=== PATIENT | male | born 1970 | race Caucasian/White ===

== ENCOUNTER 2018-09-09 09:26 | Emergency (ER) | payer SELFPAY ==
[2018-09-09 10:16] LABS: Hematocrit 46.3 % (39.6-49.0); Lymphocytes % 26.4 % (15.3-44.8); MPV 7.9 fL (7.6-11.3); RBC Red Blood Cell Count 4.89 M/uL (4.33-5.43)
[2018-09-09 10:17] LABS: Absolute Lymphocytes (CBC) 2.1 K/uL (0.7-4.9); Absolute Monocytes 0.8 K/uL (0.1-1.3); Basophils % 0.6 % (0-1.3); Eosinophils % 1.4 % (0-4.4); Monocytes % 9.6 % (3.3-12.3)
[2018-09-09 10:19] LABS: BUN Blood Urea Nitrogen 19 mg/dL (7-18); Bicarbonate 28 mmol/L (21-32); Glucose Level 99 mg/dL (74-106); NT PRO-BNP 51 pg/mL (<125); Potassium 4.7 mmol/L (3.5-5.1); Sodium Level 141 mmol/L (136-145); Troponin (Emerg Dept Use Only) < 0.02 ng/mL (0.0-0.045)
--- NOTE | 2018-09-09 10:44 | RAD REPORT ---
EXAM DESCRIPTION: Sabiha Single View09/09/2018 10:14 am CLINICAL HISTORY: Chest pain COMPARISON: 2013 FINDINGS: The lungs appear clear of acute infiltrate. The heart is normal size IMPRESSION: No acute abnormalities displayed
--- NOTE | 2018-09-09 11:29 | ER ---
Nurse's Notes [facility] [place] Name: Calin Valles Age: 47 yrs Sex: Male : 1970 Arrival Date: 09/09/2018 Time: : Bed 17 Private MD: Diagnosis: Chest pain, unspecified Presentation: 09/09 09:35 Presenting complaint: Patient states: left sided chest pain that started yesterday em afternoon, described as pressure, became nauseous, diaphoretic and left arm numbness and tingling, denies SOB, denies pain or symptoms currently. 09:35 Transition of care: patient was not received from another setting of care. Onset of em symptoms was September 08, 2018. Risk Assessment: Do you want to hurt yourself or someone else? Patient reports no desire to harm self or others. Initial Sepsis Screen: Does the patient meet any 2 criteria? No. Patient's initial sepsis screen is negative. Does the patient have a suspected source of infection? No. Patient's initial sepsis screen is negative. Care prior to arrival: None. 09:35 Method Of Arrival: Ambulatory em 09:56 Acuity: MICHELLE 3 iw Triage Assessment: 09:44 General: Appears in no apparent distress. comfortable, Behavior is calm, cooperative, em anxious. Pain: Denies pain. Cardiovascular: Capillary refill < 3 seconds Patient's skin is warm and dry. Rhythm is sinus rhythm. Historical: - Allergies: 09:44 PENICILLINS; em - Home Meds: 09:44 aspirin 81 mg Oral chew 1 tab once daily [Active]; em - PMHx: 09:44 None; em - PSHx: 09:44 None; em - Immunization history:: Adult Immunizations up to date, Flu vaccine is not up to date. - Social history:: Smoking status: Patient uses tobacco products, smokes one pack cigarettes per day. - Ebola Screening: : Patient negative for fever greater than or equal to 101.5 degrees Fahrenheit, and additional compatible Ebola Virus Disease symptoms Patient denies exposure to infectious person Patient denies travel to an Ebola-affected area in the 21 days before illness onset No symptoms or risks identified at this time. - Family history:: pertinent for heart disease. - Hospitalizations: : No recent hospitalization is reported. Screenin:40 Abuse screen: Denies threats or abuse. Nutritional screening: No deficits noted. em Tuberculosis screening: No symptoms or risk factors identified. Fall Risk None identified. Assessment: 09:40 General: Appears in no apparent distress. comfortable, Behavior is cooperative, em anxious, Denies fever. Pain: Complains of pain in anterior aspect of left upper chest Pain does not radiate. Pain currently is 0 out of 10 on a pain scale. Quality of pain is described as pressure, squeezing, Pain began 1 day ago. Neuro: Level of Consciousness is awake, alert, obeys commands, Oriented to person, place, time, situation. Cardiovascular: Reports chest pain, diaphoresis, nausea, vomiting, Denies shortness of breath, Heart tones S1 S2 present Capillary refill < 3 seconds Patient's skin is warm and dry. Rhythm is sinus rhythm. Respiratory: Airway is patent Respiratory effort is even, unlabored, Respiratory pattern is regular, symmetrical, Breath sounds are clear bilaterally. Denies shortness of breath labored breathing. GI: Abdomen is flat, Patient currently denies nausea, vomiting. Derm: Skin is intact, is healthy with good turgor, Skin is pink, warm \T\ dry. Musculoskeletal: Capillary refill < 3 seconds, Range of motion: intact in all extremities. 10:53 Reassessment: Patient appears in no apparent distress at this time. Patient and/or em family updated on plan of care and expected duration. Pain level reassessed. Patient is alert, oriented x 3, equal unlabored respirations, skin warm/dry/pink. Patient denies pain at this time. Vital Signs: 09:44 BP 151 / 105; Pulse 86; Resp 16; Temp 98.3(O); Pulse Ox 100% on R/A; Weight 74.84 kg; em Height 5 ft. 10 in. (177.80 cm); Pain 0/10; 11:00 BP 141 / 91; Pulse 76; Resp 18; Pulse Ox 99% on R/A; Pain 0/10; em 09:44 Body Mass Index 23.67 (74.84 kg, 177.80 cm) em ED Course: 09:27 Patient arrived in ED. as 09:35 Kike Mishra MD is Attending Physician. rn 09:40 Ash Carrera LVN is Primary Nurse. em 09:40 Patient has correct armband on for positive identification. Bed in low position. Call em light in reach. monitoring specialist on. Pulse ox on. NIBP on. 09:40 Patient maintains SpO2 saturation greater than 95% on room air. em 09:44 Arm band placed on. em 09:56 Triage completed. iw 10:12 X-ray completed. Portable x-ray completed in exam room. Patient tolerated procedure la2 well. 10:14 XRAY Chest (1 view) In Process Unspecified. EDMS 11:44 No provider procedures requiring assistance completed. IV discontinued, intact, em bleeding controlled, No redness/swelling at site. Pressure dressing applied. Administered Medications: No medications were administered Outcome: 11:28 Discharge ordered by MD. rn 11:44 Discharged to home ambulatory, with family. em 11:44 Condition: good 11:44 Discharge instructions given to patient, family, Instructed on discharge instructions, follow up and referral plans. medication usage, Demonstrated understanding of instructions, follow-up care, medications, Prescriptions given X 1. 11:45 Patient left the ED. em Signatures: Dispatcher [employer] EDIN Ash Carrera, COLOR MAKER COLOR MAKER em Rachael Zimmerman Irene, RN Kike Dunn MD MD rn Ardoin, Leslie la2
--- NOTE | 2018-09-09 11:29 | EDPHYS ---
Physician Documentation [facility] Name: Calin Valles Age: 47 yrs Sex: Male : 1970 Arrival Date: 09/09/2018 Time: :27 Bed 17 Private MD: ED Physician Kike Mishra HPI: 09/09 10:08 This 47 yrs old Male presents to ER via Ambulatory with complaints of Chest rn Pain, Numbness Of Arm. 10:08 The patient or guardian reports chest pain that is located primarily in the anterior rn aspect of left upper chest. Onset: yesterday. The pain radiates to the left arm. Associated signs and symptoms: Pertinent positives: nausea, Pertinent negatives: abdominal pain, cough, diaphoresis, lightheadedness, palpitations, shortness of breath, syncope, vomiting. The chest pain is described as a heaviness, a pressure. Duration: The patient or guardian reports multiple episodes, that are intermittent. Modifying factors: The symptoms are alleviated by nothing. the symptoms are aggravated by nothing. Severity of pain: At its worst the pain was mild in the emergency department the pain has improved. The patient has not experienced similar symptoms in the past. REports intermittent chest pressure, with radiation down left arm, reports an uncle that of heart attach in mid-50s, + heavy smoker, + nausea, not better or worse with anything specific. No current chest pain/sob/nausea/diaphoresis.. 10:08 Also reports takes energy pills/stackers. . rn Historical: - Allergies: 09:44 PENICILLINS; em - Home Meds: 09:44 aspirin 81 mg Oral chew 1 tab once daily [Active]; em - PMHx: 09:44 None; em - PSHx: 09:44 None; em - Immunization history:: Adult Immunizations up to date, Flu vaccine is not up to date. - Social history:: Smoking status: Patient uses tobacco products, smokes one pack cigarettes per day. - Ebola Screening: : Patient negative for fever greater than or equal to 101.5 degrees Fahrenheit, and additional compatible Ebola Virus Disease symptoms Patient denies exposure to infectious person Patient denies travel to an Ebola-affected area in the 21 days before illness onset No symptoms or risks identified at this time. - Family history:: pertinent for heart disease. - Hospitalizations: : No recent hospitalization is reported. ROS: 10:08 Constitutional: Negative for fever, chills, and weight loss, Eyes: Negative for injury, rn pain, redness, and discharge, Neck: Negative for injury, pain, and swelling, Cardiovascular: Negative for palpitations, and edema, Respiratory: Negative for shortness of breath, cough, wheezing, and pleuritic chest pain, Abdomen/GI: Negative for abdominal pain, vomiting, diarrhea, and constipation, MS/Extremity: Negative for injury and deformity, Skin: Negative for injury, rash, and discoloration, Neuro: Negative for headache, weakness, numbness, tingling, and seizure. Exam: 10:08 Constitutional: This is a well developed, well nourished patient who is awake, alert, rn and in no acute distress. Head/Face: Normocephalic, atraumatic. Eyes: Pupils equal round and reactive to light, extra-ocular motions intact. Lids and lashes normal. Conjunctiva and sclera are non-icteric and not injected. Cornea within normal limits. Periorbital areas with no swelling, redness, or edema. ENT: MMM Neck: Trachea midline, no thyromegaly or masses palpated, and no cervical lymphadenopathy. Supple, full range of motion without nuchal rigidity, or vertebral point tenderness. No Meningismus. Cardiovascular: Regular rate and rhythm, No pulse deficits. Respiratory: Lungs have equal breath sounds bilaterally, clear to auscultation. No increased work of breathing, no retractions or nasal flaring. Abdomen/GI: Soft, non-tender MS/ Extremity: Pulses equal, no cyanosis. Neurovascular intact. Full, normal range of motion. Equal circumference. Neuro: Awake and alert, GCS 15, oriented to person, place, time, and situation. Cranial nerves II-XII grossly intact. Motor strength 5/5 in all extremities. Sensory grossly intact. Cerebellar exam normal. 11:42 ECG was reviewed by the Attending Physician. rn Vital Signs: 09:44 BP 151 / 105; Pulse 86; Resp 16; Temp 98.3(O); Pulse Ox 100% on R/A; Weight 74.84 kg; em Height 5 ft. 10 in. (177.80 cm); Pain 0/10; 11:00 BP 141 / 91; Pulse 76; Resp 18; Pulse Ox 99% on R/A; Pain 0/10; em 09:44 Body Mass Index 23.67 (74.84 kg, 177.80 cm) em MDM: 09:35 Patient medically screened. rn 11:25 Differential diagnosis: acute myocardial infarction, acute pericarditis, anxiety, rn coronary artery disease chest wall pain, costochondritis, esophagitis, gastritis, gastroesophageal reflux disease (GERD), pericarditis, pleurisy, pneumothorax, stable angina. HEART Score:. Data reviewed: vital signs, nurses notes, lab test result(s), EKG, radiologic studies, plain films, and as a result, I will discharge patient. Counseling: I had a detailed discussion with the patient and/or guardian regarding: the historical points, exam findings, and any diagnostic results supporting the discharge/admit diagnosis, lab results, radiology results, the need for outpatient follow up, to return to the emergency department if symptoms worsen or persist or if there are any questions or concerns that arise at home. Counseling: I had a detailed discussion with the patient and/or guardian regarding: smoking cessation. Response to treatment: the patient's condition has returned to base line, the patient is now symptom free, and as a result, I will discharge patient. Special discussion: Based on the patient's history, exam, and Dx evaluation, there is no indication for emergent intervention or inpatient Tx. It is understood by the patient/guardian that if the Sx's persist or worsen they need to return immediately for re-evaluation. I discussed with the patient/guardian in detail that at this point there is no indication for admission to the hospital. It is understood, however, that if the symptoms persist or worsen the patient needs to return immediately for re-evaluation. ED course: Will restart patient on metoprolol, daily aspirin, and recommended close cardiology f/u, patient ahs seen dr ruiz before, and actually missed his scheduled stress test, told him he needs stress test, to take it easy, stop using stimulants, and quit smoking, return precautions given and understood. . 09/09 09:44 Order name: Basic Metabolic Panel; Complete Time: 10: rn 09/09 09:44 Order name: CBC with Diff; Complete Time: 10: rn 09/09 09:44 Order name: NT PRO-BNP; Complete Time: : rn 09/09 08:44 Order name: Troponin (emerg Dept Use Only); Complete Time: 10:27 rn 09/09 09:44 Order name: XRAY Chest (1 view); Complete Time: 10:46 rn 09/09 09:44 Order name: EKG; Complete Time: 09:45 rn 09/09 09:44 Order name: Cardiac monitoring; Complete Time: 09:51 rn 09/09 09:44 Order name: EKG - Nurse/Tech; Complete Time: 09:51 rn 09/09 09:44 Order name: IV Saline Lock; Complete Time: 09:51 rn 09/09 09:44 Order name: Labs collected and sent; Complete Time: 09:51 rn 09/09 09:44 Order name: O2 Per Protocol; Complete Time: :51 rn 09/09 09:44 Order name: O2 Sat Monitoring; Complete Time: :51 rn EC:42 Rate is 80 beats/min. Rhythm is regular. QRS [place] is Normal. [place] interval is shortened rn at 108 msec. QRS interval is normal. QT interval is normal. No Q waves. T waves are Normal. No ST changes noted. Clinical impression: LVH and No evidence of ischemia. Interpreted by me. Administered Medications: No medications were administered Disposition: 09/09/18 11:28 Discharged to Home. Impression: Chest pain, unspecified. - Condition is Stable. - Discharge Instructions: Nonspecific Chest Pain, Steps to Quit Smoking. - Prescriptions for Metoprolol Tartrate 25 mg Oral Tablet - take 1 tablet by ORAL route 2 times per day with a meal; 60 tablet. - Medication Reconciliation Form, Thank You Letter, Antibiotic Education, Prescription Opioid Use form. - Follow up: Private Physician; When: As needed; Reason: Recheck today's complaints, Re-evaluation by your physician. - Problem is new. - Symptoms have improved. Signatures: Dispatcher [employer] EDAsh Nicolas, MANAGER OF INFORMATION MANAGER OF INFORMATION em Kike Mishra MD MD rn orthopedic: (The following items were deleted from the chart) 11:45 11:28 09/09/2018 11:28 Discharged to Home. Impression: Chest pain, unspecified. em Condition is Stable. Forms are Medication Reconciliation Form, Thank You Letter, Antibiotic Education, Prescription Opioid Use. Follow up: Private Physician; When: As needed; Reason: Recheck today's complaints, Re-evaluation by your physician. Problem is new. Symptoms have improved. rn
--- NOTE | 2018-09-10 07:49 | EKG ---
Test Date: 2018-09-09 Test Time: 09:33:29 Cotton Weigher: MEASUREMENT RESULTS: Intervals: Rate: 80 MD: 108 QRSD: 102 QT: 364 QTc: 419 Dwight: P: 60 MD: 108 QRS: 77 T: 75 INTERPRETIVE STATEMENTS: Sinus rhythm with short MD Minimal voltage criteria for LVH, may be normal variant Borderline ECG Compared to ECG 05/10/2014 06:43:34 Short MD interval now present Electronically Signed On 09-10-18 07:47:34 CDT by Mikel Carvajal
== END 2018-09-09 11:45 | disposition home or self-care (01) ==
LOC: ER 09:26
DX: R07.9 Chest pain, unspecified (principal); R11.0 Nausea; Z79.82 Long term (current) use of aspirin; Z88.0 Allergy status to penicillin; F17.210 Nicotine dependence, cigarettes, uncomplicated
CPT/HCPCS: 36415; 71045; 80048; 83880; 84484; 85025; 93005; 99284

== ENCOUNTER 2019-03-03 19:08 | Emergency (ER) | payer SELFPAY ==
[2019-03-03 19:30] LABS: Absolute Lymphocytes (CBC) 2.5 K/uL (0.7-4.9); Basophils % 0.8 % (0-1.3); Hematocrit 44.7 % (39.6-49.0); Lymphocytes % 35.4 % (15.3-44.8); MPV 8.2 fL (7.6-11.3); RBC Red Blood Cell Count 4.93 M/uL (4.33-5.43)
[2019-03-03 19:32] LABS: Protime INR 0.93
[2019-03-03] MEDS ORDERED: NA CHLORIDE 0.9% 1,000 ML ONE (19:41)
[2019-03-03 20:12] LABS: Barbiturates NEGATIVE (NEGATIVE); Benzodiazepines NEGATIVE (NEGATIVE); Cocaine NEGATIVE (NEGATIVE); METHAMPHETAM POSITIVE (NEGATIVE); Methadone NEGATIVE (NEGATIVE); Opiates NEGATIVE (NEGATIVE); Phencyclidine NEGATIVE (NEGATIVE); THC Cannibis NEGATIVE (NEGATIVE)
[2019-03-03 20:14] LABS: Urine Blood NEGATIVE (NEG); Urine Glucose NEGATIVE (NEG); Urine Protein NEGATIVE (NEG); Urine Specific Gravity 1.025 (1.005-1.030)
[2019-03-03 20:17] LABS: ALT/SGPT 59 U/L (12-78); AST/SGOT 35 U/L (15-37); Alkaline Phosphatase 59 U/L (45-117); BUN Blood Urea Nitrogen 14 mg/dL (7-18); Bicarbonate 27 mmol/L (21-32); Bilirubin Direct < 0.1 mg/dL (0-0.2); Bilirubin Total 0.2 mg/dL (0.2-1.0); Glucose Level 98 mg/dL (74-106); Magnesium 2.2 mg/dL (1.8-2.4); NT PRO-BNP 35 pg/mL (<125); Potassium 4.3 mmol/L (3.5-5.1); Protein, Total 7.5 g/dL (6.4-8.2); Sodium Level 140 mmol/L (136-145); Troponin (Emerg Dept Use Only) < 0.02 ng/mL (0.0-0.045)
--- NOTE | 2019-03-03 20:35 | ER ---
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 Transition of care: patient was not received from another setting of care. Onset of symptoms was March 03, 2019. Risk Assessment: Do you want to hurt yourself or someone else? Patient reports no desire to harm self or others. Initial Sepsis Screen: Does the patient meet any 2 criteria? No. Patient's initial sepsis screen is negative. Does the patient have a suspected source of infection? No. Patient's initial sepsis screen is negative. Care prior to arrival: None. 19:16 Method Of Arrival: Ambulatory lp1 19:16 Acuity: MICHELLE 3 lp1 Historical: - Allergies: 19:18 PENICILLINS; lp1 - Home Meds: 19:18 None [Active]; lp1 - PMHx: 19:18 Hypertension; lp1 - PSHx: 19:18 hand surgery; lp1 - Immunization history:: Adult Immunizations up to date. - Social history:: Smoking status: Patient uses tobacco products, smokes one-half pack cigarettes per day, Patient/guardian denies using alcohol, street drugs. - Ebola Screening: : No symptoms or risks identified at this time. Screenin:18 Abuse screen: Denies threats or abuse. Denies injuries from another. Nutritional lp1 screening: No deficits noted. Tuberculosis screening: No symptoms or risk factors identified. Fall Risk None identified. Assessment: 19:21 General: Appears in no apparent distress. comfortable, Behavior is calm, cooperative. mg2 Pain: Complains of pain in chest Pain does not radiate. Pain level that patient reports is acceptable is 2 out of 10 on a pain scale. Quality of pain is described as aching, Pain began gradually, 5-6 days ago Is intermittent. Neuro: Level of Consciousness is awake, alert, obeys commands, Oriented to person, place, time, situation. Cardiovascular: Reports chest pain, shortness of breath, Capillary refill < 3 seconds Patient's skin is warm and dry. Respiratory: Airway is patent Respiratory effort is even, unlabored, Respiratory pattern is regular, symmetrical. GI: No signs and/or symptoms were reported involving the gastrointestinal system. : No signs and/or symptoms were reported regarding the genitourinary system. EENT: No signs and/or symptoms were reported regarding the EENT system. Derm: Skin is intact, is healthy with good turgor, Skin is pink, warm \\T\\ dry. normal. Musculoskeletal: Circulation, motion, and sensation intact. Capillary refill < 3 seconds. 21:00 Reassessment: Patient appears in no apparent distress at this time. Patient states mg2 feeling better. Vital Signs: 19:17 BP 156 / 93; Pulse 118; Resp 16; Temp 97.6(O); Pulse Ox 99% on R/A; Weight 74.84 kg; lp1 Height 5 ft. 10 in. (177.80 cm); Pain 4/10; 20:35 BP 147 / 93; Pulse 102; Resp 18; Pulse Ox 100% on R/A; mg2 21:13 BP 135 / 78; Pulse 100; Resp 18; Temp 98.5; Pulse Ox 100% on R/A; mg2 19:17 Body Mass Index 23.67 (74.84 kg, 177.80 cm) lp1 ED Course: 19:15 Patient arrived in ED. lp1 19:17 Triage completed. lp1 19:17 Arm band placed on. lp1 19:18 Jose Coleman, VIOLA is Primary Nurse. mg2 19:18 Patient maintains SpO2 saturation greater than 95% on room air. lp1 19:20 No provider procedures requiring assistance completed. Inserted saline lock: 20 gauge mg2 in right antecubital area, using aseptic technique. Blood collected. 19:22 Oscar Hunter NP is PHCP. pm1 19:22 Carlos Caba MD is Attending Physician. pm1 19:23 Patient has correct armband on for positive identification. call center consultant on. Pulse mg2 ox on. NIBP on. Door closed. 20:24 XRAY Chest (1 view) In Process Unspecified. EDMS 21:13 IV discontinued, intact, bleeding controlled, No redness/swelling at site. Pressure mg2 dressing applied. Administered Medications: 19:43 Drug: NS 0.9% 1000 ml Route: IV; Rate: 1000 ml; Site: right antecubital; mg2 21:12 Follow up: Response: No adverse reaction; IV Status: Completed infusion; IV Intake: mg2 1000ml 21:11 Drug: Flexeril 10 mg Route: PO; mg2 21:12 Follow up: Response: No adverse reaction; Medication administered at discharge. mg2 21:11 Drug: TORadol - Ketorolac 15 mg Route: IVP; Site: right antecubital; mg2 21:12 Follow up: Response: No adverse reaction; Medication administered at discharge. mg2 Intake: 21:12 IV: 1000ml; Total: 1000ml. mg2 Outcome: 20:35 Discharge ordered by MD. pm1 21:15 Discharged to home ambulatory, with family. mg2 21:15 Condition: stable 21:15 Discharge instructions given to patient, family, Instructed on discharge instructions, follow up and referral plans. medication usage, Demonstrated understanding of instructions, follow-up care, medications, Prescriptions given X 1. 21:16 Patient left the ED. mg2 Signatures: Dispatcher [employer] EDMS Laura Norton RN RN lp1 Oscar Hunter NP RAIL MAINTENANCE WORKER pm1 Jose Coleman RN RN mg2
--- NOTE | 2019-03-03 20:35 | EDPHYS ---
Physician Documentation [facility] Name: Calin Valles Age: 48 yrs Sex: Male : 1970 Arrival Date: 03/03/2019 Time: 19:15 Bed 20 Private MD: ED Physician Carlos Caba HPI: 03/03 19:30 This 48 yrs old Male presents to ER via Ambulatory with complaints of Chest pm1 Pain. 19:30 The patient or guardian reports chest pain that is located primarily in the medial pm1 anterior aspect of left upper chest. Onset: 7 day(s) ago. The pain does not radiate. Associated signs and symptoms: Pertinent positives: headache, Pertinent negatives: abdominal pain, cough, nausea, shortness of breath, vomiting. The chest pain is described as sharp. Duration: The patient or guardian reports multiple episodes. Modifying factors: the symptoms are aggravated by deep breath, palpation of area, movement of left arm. The patient has not experienced similar symptoms in the past. The patient has not recently seen a physician. Historical: - Allergies: 19:18 PENICILLINS; lp1 - Home Meds: 19:18 None [Active]; lp1 - PMHx: 19:18 Hypertension; lp1 - PSHx: 19:18 hand surgery; lp1 - Immunization history:: Adult Immunizations up to date. - Social history:: Smoking status: Patient uses tobacco products, smokes one-half pack cigarettes per day, Patient/guardian denies using alcohol, street drugs. - Ebola Screening: : No symptoms or risks identified at this time. ROS: 19:30 Constitutional: Negative for fever, chills, and weight loss, Eyes: Negative for injury, pm1 pain, redness, and discharge, ENT: Negative for injury, pain, and discharge, Neck: Negative for injury, pain, and swelling. 19:30 Respiratory: Negative for shortness of breath, cough, wheezing, and pleuritic chest pain, Abdomen/GI: Negative for abdominal pain, nausea, vomiting, diarrhea, and constipation, Back: Negative for injury and pain, : Negative for injury, bleeding, discharge, and swelling, MS/Extremity: Negative for injury and deformity, Skin: Negative for injury, rash, and discoloration, Neuro: Negative for headache, weakness, numbness, tingling, and seizure. 19:30 Cardiovascular: Positive for chest pain, palpitations, Negative for edema. Exam: 19:30 Constitutional: This is a well developed, well nourished patient who is awake, alert, pm1 and in no acute distress. Head/Face: Normocephalic, atraumatic. Neck: Trachea midline, no thyromegaly or masses palpated, and no cervical lymphadenopathy. Supple, full range of motion without nuchal rigidity, or vertebral point tenderness. No Meningismus. 19:30 Respiratory: Lungs have equal breath sounds bilaterally, clear to auscultation and percussion. No rales, rhonchi or wheezes noted. No increased work of breathing, no retractions or nasal flaring. Abdomen/GI: Soft, non-tender, with normal bowel sounds. No distension or tympany. No guarding or rebound. No evidence of tenderness throughout. Back: No spinal tenderness. No costovertebral tenderness. Full range of motion. Skin: Warm, dry with normal turgor. Normal color with no rashes, no lesions, and no evidence of cellulitis. MS/ Extremity: Pulses equal, no cyanosis. Neurovascular intact. Full, normal range of motion. 19:30 Chest/axilla: Inspection: normal, Palpation: crepitus, is not appreciated, tenderness, that is mild, of the medial anterior aspect of left upper chest, that totally reproduces the patient's complaints, Pain reproduced with extending left arm and moving left arm above head, and deep breathing. 19:30 Cardiovascular: Rate: tachycardic, Rhythm: regular, Pulses: no pulse deficits are appreciated, Heart sounds: normal, Edema: is not appreciated. 19:30 Neuro: Orientation: is normal, Motor: is normal, moves all fours, Gait: is steady, at a normal pace, without difficulty. 19:30 Psych: Behavior/mood is pleasant, cooperative, Affect is animated. Vital Signs: 19:17 BP 156 / 93; Pulse 118; Resp 16; Temp 97.6(O); Pulse Ox 99% on R/A; Weight 74.84 kg; lp1 Height 5 ft. 10 in. (177.80 cm); Pain 4/10; 20:35 BP 147 / 93; Pulse 102; Resp 18; Pulse Ox 100% on R/A; mg2 21:13 BP 135 / 78; Pulse 100; Resp 18; Temp 98.5; Pulse Ox 100% on R/A; mg2 19:17 Body Mass Index 23.67 (74.84 kg, 177.80 cm) lp1 MDM: 19:23 Patient medically screened. pm1 20:33 Data reviewed: vital signs. Data interpreted: Pulse oximetry: on room air is 99 %. pm1 Interpretation: normal. Counseling: I had a detailed discussion with the patient and/or guardian regarding: the historical points, exam findings, and any diagnostic results supporting the discharge/admit diagnosis, lab results, radiology results, the need for outpatient follow up, to return to the emergency department if symptoms worsen or persist or if there are any questions or concerns that arise at home. 03/03 19:19 Order name: Basic Metabolic Panel mg2 03/03 19:19 Order name: CBC with Diff; Complete Time: 19:46 mg2 03/03 19:19 Order name: LFT's; Complete Time: 20:21 mg2 03/03 19:19 Order name: Magnesium; Complete Time: 20:21 mg2 03/03 19:19 Order name: NT PRO-BNP; Complete Time: 20:21 mg2 03/03 19:19 Order name: PT-INR; Complete Time: 19:46 mg2 03/03 19:19 Order name: Troponin (emerg Dept Use Only); Complete Time: 20:21 mg2 03/03 19:19 Order name: XRAY Chest (1 view); Complete Time: 20:57 mg2 03/03 19:20 Order name: Basic Metabolic Panel; Complete Time: 20:21 EDMS 03/03 19:29 Order name: UDS; Complete Time: 20:21 pm1 03/03 19:58 Order name: Urine Dipstick--Ancillary (enter results); Complete Time: 20:21 ar5 03/03 19:19 Order name: EKG; Complete Time: 19:20 mg2 03/03 19:19 Order name: Cardiac monitoring; Complete Time: 19:19 mg2 03/03 19:19 Order name: EKG - Nurse/Tech; Complete Time: 19:19 mg2 03/03 19:19 Order name: IV Saline Lock; Complete Time: 19:19 mg2 03/03 19:19 Order name: Labs collected and sent; Complete Time: 19: mg2 03/03 19:19 Order name: O2 Per Protocol; Complete Time: 19:19 mg2 03/03 19:19 Order name: O2 Sat Monitoring; Complete Time: : mg2 EC:42 Rate is 108 beats/min. Rhythm is regular, Sinus tachycardia with No ectopy. No Q waves. pm1 T waves are Normal. No ST changes noted. Clinical impression: Sinus tachycardia. Administered Medications: 19:43 Drug: NS 0.9% 1000 ml Route: IV; Rate: 1000 ml; Site: right antecubital; mg2 21:12 Follow up: Response: No adverse reaction; IV Status: Completed infusion; IV Intake: mg2 1000ml 21:11 Drug: Flexeril 10 mg Route: PO; mg2 21:12 Follow up: Response: No adverse reaction; Medication administered at discharge. mg2 21:11 Drug: TORadol - Ketorolac 15 mg Route: IVP; Site: right antecubital; mg2 21:12 Follow up: Response: No adverse reaction; Medication administered at discharge. mg2 Disposition: 03/03/19 20:35 Discharged to Home. Impression: Chest pain, unspecified, Other stimulant abuse - methamphetamine. - Condition is Stable. - Discharge Instructions: Finding Treatment for Addiction, Nonspecific Chest Pain, Stimulant Use Disorder-Methamphetamines. - Prescriptions for Cyclobenzaprine 10 mg Oral Tablet - take 1 tablet by ORAL route every 8 hours As needed; 30 tablet. - Medication Reconciliation Form, Thank You Letter, Antibiotic Education, Prescription Opioid Use form. - Follow up: Emergency Department; When: As needed; Reason: Worsening of condition. Follow up: Private Physician; When: 2 - 3 days; Reason: Recheck today's complaints, Continuance of care, Re-evaluation by your physician. - Problem is new. - Symptoms have improved. Addendum: 03/05/2019 08:42 Co-signature as Attending Physician, Carlos Caba MD I agree with the assessment and c soliman plan of care. Signatures: Dispatcher [employer] Carlos Monique MD MD cha Pena, Laura, RN RN lp1 Oscar Hunter EDUCATIONAL PSYCHOLOGY TEACHER EDUCATIONAL PSYCHOLOGY TEACHER pm1 Jose Coleman RN RN mg2 Corrections: (The following items were deleted from the chart) 03/03 21:16 20:35 03/03/2019 20:35 Discharged to Home. Impression: Chest pain, unspecified; Other mg2 stimulant abuse - methamphetamine. Condition is Stable. Forms are Medication Reconciliation Form, Thank You Letter, Antibiotic Education, Prescription Opioid Use. Follow up: Emergency Department; When: As needed; Reason: Worsening of condition. Follow up: Private Physician; When: 2 - 3 days; Reason: Recheck today's complaints, Continuance of care, Re-evaluation by your physician. Problem is new. Symptoms have improved. pm1
--- NOTE | 2019-03-03 20:51 | RAD REPORT ---
EXAM DESCRIPTION: RAD - Chest Single View - 03/03/2019 8:24 pm CLINICAL HISTORY: Chest pain, shortness of breath COMPARISON: August 2018 TECHNIQUE: AP portable chest image was obtained 1948 hours . FINDINGS: Lungs are clear. Heart and vasculature are normal. No measurable pleural effusion and no p neumothorax. No acute bony abnormality seen. No acute aortic findings suspected. IMPRESSION: No acute cardiopulmonary process. No significant change from comparison.
[2019-03-03] MEDS ORDERED: KETOROLAC 30 MG/ML INJ ONE (21:05)
[2019-03-03] MEDS ORDERED: CYCLOBENZAPRINE 10 MG TAB ONE (21:05)
[2019-03-03 21:22] VITALS: O2SAT 100
[2019-03-03 21:23] VITALS: BP 135/78; TEMP 98.5
--- NOTE | 2019-03-04 06:10 | EKG ---
Test Date: 2019-03-03 Test Time: 19:17:31 Hiv Nurse: ISRA[place] MEASUREMENT RESULTS: Intervals: Rate: 108 SC: 126 QRSD: 92 QT: 336 QTc: 450 Mcgrady: P: 80 SC: 126 QRS: 81 T: 74 INTERPRETIVE STATEMENTS: Sinus tachycardia Otherwise normal ECG Compared to ECG 09/09/2018 09:33:29 Sinus rhythm no longer present Short SC interval no longer present Left ventricular hypertrophy no longer present Electronically Signed On 03-04-19 06:09:13 CDT by Shravan Mcneal
== END 2019-03-03 21:16 | disposition home or self-care (01) ==
LOC: ER 19:08
DX: F15.10 Other stimulant abuse, uncomplicated (principal); I10 Essential (primary) hypertension; F17.210 Nicotine dependence, cigarettes, uncomplicated; Z88.0 Allergy status to penicillin
CPT/HCPCS: 36415; 71045; 80048; 80076; 80307; 81003; 83735; 83880; 84484; 85025; 85610; 93005; 96361; 96374; 99285; J7030

== ENCOUNTER 2020-03-28 13:28 | Emergency (ER) | payer SELFPAY ==
--- NOTE | 2020-03-28 13:56 | RAD REPORT ---
EXAM DESCRIPTION: CT - Ct Stroke Brain Wo Cont - 03/28/2020 1:44 pm CLINICAL HISTORY: NUMBNESS COMPARISON: No comparisons TECHNIQUE: Axial 5 millimeter thick images of the head were obtained without IV contrast. All CT scans are performed using dose optimization technique as appropriate and may include automated exposure control or mA/KV adjustment according to patient size. FINDINGS: No intracranial hemorrhage, mass, or cerebral edema. No acute infarction identifiable. No extra-axial fluid collections. Smith matter-white matter differentiation is preserved. A 6 millimeter round metal or high density foreign body is seen in the scalp soft tissues posterior t o the right occipital bone. Visualized portions of the mastoid air cells, paranasal sinuses, and orbits are unremarkable. Findings telephoned to doctor Caba 1352 hours. IMPRESSION: No CT evidence of acute intracranial process.
[2020-03-28 13:58] LABS: Absolute Lymphocytes (CBC) 1.6 K/uL (0.7-4.9); Basophils % 0.6 % (0-1.3); Hematocrit 47.9 % (39.6-49.0); Lymphocytes % 27.1 % (15.3-44.8); MPV 7.7 fL (7.6-11.3); RBC Red Blood Cell Count 5.18 M/uL (4.33-5.43)
[2020-03-28 13:59] LABS: Protime INR 0.91
[2020-03-28] MEDS ORDERED: MORPHINE 2 MG/ML SYR ONE (14:03)
[2020-03-28] MEDS ORDERED: ONDANSETRON 4 MG/2 ML VIAL ONE (14:03)
[2020-03-28] MEDS ORDERED: MECLIZINE HCL 12.5 MG TAB ONE (14:04)
[2020-03-28] MEDS ORDERED: NA CHLORIDE 0.9% 1,000 ML ONE (14:04)
--- NOTE | 2020-03-28 14:10 | RAD REPORT ---
EXAM DESCRIPTION: RAD - Chest Single View - 03/28/2020 1:59 pm CLINICAL HISTORY: dizziness;Chest pain, Stroke protocol chest film COMPARISON: February 2019 TECHNIQUE: AP portable chest image was obtained 03/28/2020 1:59 pm . FINDINGS: Lungs are clear. Heart and vasculature are normal. No measurable pleural effusion and no p neumothorax. No acute bony abnormality seen. No acute aortic findings suspected. IMPRESSION: No acute cardiopulmonary process. No significant change from comparison study.
[2020-03-28 14:12] LABS: ALT/SGPT 29 U/L (12-78); AST/SGOT 19 U/L (15-37); Albumin 4.2 g/dL (3.4-5.0); Alkaline Phosphatase 52 U/L (45-117); BUN Blood Urea Nitrogen 12 mg/dL (7-18); Bicarbonate 30 mmol/L (21-32); Bilirubin Direct < 0.1 mg/dL (0-0.2); Bilirubin Total 0.4 mg/dL (0.2-1.0); Glucose Level 97 mg/dL (74-106); Magnesium 2.5 mg/dL (1.8-2.4); NT PRO-BNP 43 pg/mL (<125); Potassium 4.5 mmol/L (3.5-5.1); Protein, Total 7.8 g/dL (6.4-8.2); Sodium Level 142 mmol/L (136-145); Troponin (Emerg Dept Use Only) < 0.02 ng/mL (0.0-0.045)
[2020-03-28] MEDS ORDERED: ASPIRIN 81 MG CHEWABLE TABLET ONE (14:38)
[2020-03-28 16:06] LABS: Barbiturates NEGATIVE (NEGATIVE); Benzodiazepines NEGATIVE (NEGATIVE); Cocaine NEGATIVE (NEGATIVE); METHAMPHETAM POSITIVE (NEGATIVE); Methadone NEGATIVE (NEGATIVE); Opiates NEGATIVE (NEGATIVE); Phencyclidine NEGATIVE (NEGATIVE); THC Cannibis NEGATIVE (NEGATIVE)
--- NOTE | 2020-03-28 18:36 | EDPHYS ---
Physician Documentation [facility] Name: Calin Valles Age: 49 yrs Sex: Male : 1970 Arrival Date: 03/28/2020 Time: 13:28 Bed 5 Private MD: MARA Physician Carlos Caba HPI: 03/28 13:49 This 49 yrs old Male presents to ER via Ambulatory with complaints of S/S of cp Possible Stroke. 13:49 The patient's problem is reported as paresthesias, in right upper extremity, in right cp lower extremity, dysphasia, difficulty speaking, visual difficulty, blurred vision, dizziness. Onset: The symptoms/episode began/occurred 45 minute(s) ago. Duration: This was a single incident. Associated signs and symptoms: Pertinent positives: chest pain, left arm pain. Patient's baseline: Neuro: alert and fully oriented, Motor: no deficits, Ambulation: walks without assistance, Speech: normal. 13:55 Patient reports smoking methamphetamine yesterday. Had episode of dizziness, tingling cp all over yesterday while at [facility]. Historical: - Allergies: 13:46 PENICILLINS; jd3 - PMHx: 13:46 Hypertension; jd3 - PSHx: 13:46 hand surgery; jd3 - Immunization history:: Adult Immunizations unknown. - Social history:: Smoking status: Patient reports the use of cigarette tobacco products, smokes one-half pack cigarettes per day, Patient uses street drugs, Methamphetamine (Meth). ROS: 13:56 Constitutional: Negative for body aches, chills, fever, poor PO intake. cp 13:56 Eyes: Positive for blurry vision, Negative for vision loss. 13:56 ENT: Negative for ear pain, sore throat, difficulty swallowing, difficulty handling secretions. 13:56 Cardiovascular: Positive for chest pain, Negative for edema, palpitations. 13:56 Respiratory: Negative for cough, shortness of breath, wheezing. 13:56 Abdomen/GI: Negative for abdominal pain, nausea, vomiting, and diarrhea. 13:56 Neuro: Positive for dizziness, tingling, of the right hand and left hand, Negative for altered mental status, headache, speech changes, weakness. 13:56 All other systems are negative. Exam: 13:57 Radiologist reports: no acute findings cp 13:57 Head/Face: Normocephalic, atraumatic. 13:57 Constitutional: The patient appears in no acute distress, alert, awake, non-diaphoretic, non-toxic, well developed, well nourished, anxious. 13:57 Eyes: Periorbital structures: appear normal, Pupils: equal, round, and reactive to light and accomodation, Extraocular movements: intact throughout, Conjunctiva: normal, no exudate, no injection, Lids and lashes: appear normal, bilaterally. 13:57 ENT: External ear(s): are unremarkable, Nose: is normal, Mouth: Lips: moist, Oral mucosa: moist, Posterior pharynx: Airway: no evidence of obstruction, patent. 13:57 Neck: ROM/movement: is normal, is supple, without pain, no range of motions limitations, no nuchal rigidity. 13:57 Chest/axilla: Inspection: normal, Palpation: is normal, no crepitus, no tenderness. 13:57 Cardiovascular: Rate: normal, Rhythm: regular, Heart sounds: murmur, not appreciated, Edema: is not appreciated. 13:57 Respiratory: the patient does not display signs of respiratory distress, Respirations: normal, no use of accessory muscles, no retractions, labored breathing, is not present, Breath sounds: are clear throughout, no decreased breath sounds, no stridor, no wheezing. 13:57 Abdomen/GI: Inspection: abdomen appears normal, Palpation: abdomen is soft and non-tender, in all quadrants. 13:57 Back: pain, is absent, ROM is normal. 13:57 Skin: no rash present. 13:57 Neuro: Orientation: to person, place \T\ time. Mentation: is normal, Cerebellar function: Romberg testing is negative, normal finger to nose testing, heel to parrish testing is normal, Motor: moves all fours, strength is normal, Sensation: tingling, that is mild, of the right hand and left hand. 13:57 ECG was reviewed by the Attending Physician. cp Vital Signs: 13:46 BP 168 / 119; Pulse 98; Resp 18 S; Temp 97.2(TE); Pulse Ox 100% on R/A; Weight 74.84 kg jd3 (R); Height 5 ft. 10 in. (177.80 cm) (R); Pain 3/10; 14:21 BP 161 / 103; Pulse 75; Resp 20; Pulse Ox 99% on R/A; em 15:30 BP 150 / 96; Pulse 98; Resp 18; Pulse Ox 96% on R/A; em 16:30 BP 150 / 97; Pulse 103; Resp 18; Pulse Ox 100% on R/A; Pain 0/10; em 17:47 BP 150 / 105; Pulse 87; Resp 18; Pulse Ox 99% on R/A; em 13:46 Body Mass Index 23.67 (74.84 kg, 177.80 cm) jd3 NIH Stroke Scale Scores: 13:57 NIHSS Score: 0 cp MDM: 13:44 Patient medically screened. cp 14:00 ED course: Will not administer tpa due to symptoms of tingling being bilateral, no cp observed speech changes, no focal deficits on exam. 14:00 Differential diagnosis: CVA, TIA, drug effects, acute AK. cp 18:11 Data reviewed: vital signs, nurses notes, lab test result(s), EKG, radiologic studies, cp CT scan, plain films. Test interpretation: by ED physician or midlevel provider: ECG. Counseling: I had a detailed discussion with the patient and/or guardian regarding: the historical points, exam findings, and any diagnostic results supporting the discharge/admit diagnosis, lab results, radiology results, to return to the emergency department if symptoms worsen or persist or if there are any questions or concerns that arise at home. Response to treatment: the patient's symptoms have markedly improved after treatment. ED course: VSS. CT head negative for acute findings, initial and repeat troponin negative. Symptoms improved. Will discharge to home for continued monitoring. 03/28 13:46 Order name: Basic Metabolic Panel; Complete Time: 14:20 03/28 14:20 Interpretation: Normal except: CL 108; GFR 75. 03/28 13:46 Order name: CBC with Diff; Complete Time: 14:20 03/28 13:46 Order name: LFT's; Complete Time: 14:20 03/28 14:20 Interpretation: Normal except: GLOB 3.6. 03/28 13:46 Order name: Magnesium; Complete Time: 14:20 03/28 15:04 Interpretation: Abnormal: MG 2.5. 03/28 13:46 Order name: NT PRO-BNP; Complete Time: 14:20 03/28 13:46 Order name: PT-INR; Complete Time: 14:20 03/28 13:42 Order name: Ct Stroke Brain Wo Cont; Complete Time: 14:20 EDMS 03/28 13:46 Order name: Troponin (emerg Dept Use Only); Complete Time: 14:20 03/28 14:20 Interpretation: Reviewed. 03/28 13:46 Order name: XRAY Chest (1 view); Complete Time: 14:20 03/28 13:46 Order name: UDS; Complete Time: 16:22 03/28 16:22 Interpretation: Normal except: METHAMPHETAMINE POSITIVE. 03/28 13:59 Order name: Glucose, Ancillary Testing; Complete Time: 14:20 EDMS 03/28 15:54 Order name: Urine Dipstick--Ancillary (enter results) 03/28 16:58 Order name: Troponin I 03/28 13:46 Order name: EKG; Complete Time: 13:47 03/28 13:46 Order name: Cardiac monitoring; Complete Time: 13:50 03/28 13:46 Order name: EKG - Nurse/Tech; Complete Time: 13:50 03/28 13:46 Order name: IV Saline Lock; Complete Time: 13:51 03/28 13:46 Order name: Labs collected and sent; Complete Time: 13:51 03/28 13:46 Order name: O2 Per Protocol; Complete Time: 14:03 03/28 13:46 Order name: O2 Sat Monitoring; Complete Time: 14:03 EC:57 Rate is 82 beats/min. Rhythm is regular. NM interval is normal. QRS interval is normal. cp QT interval is normal. T waves are Inverted in leads aVL, aVR, V2. Interpreted by me. Reviewed by me. Administered Medications: 04:00 Drug: Zofran (Ondansetron) 4 mg Route: IVP; Site: right antecubital; em 16:34 Follow up: Response: No adverse reaction em 13:51 CANCELLED (Physician Discretion): morphine 2 mg IVP once; (PAIN>8) RASS on ADMN: cp Combtv4, Very Agttd3, Agttd2, Rstlss1, AlertClm0, Drwsy-1, LtSdtn-2, ModSdtn-3, DpSdtn-4, UnArsble-5 x2 14:00 Drug: NS 0.9% 1000 ml Route: IV; Rate: 1 bolus; Site: right antecubital; em 15:00 Follow up: IV Status: Completed infusion; IV Intake: 1000ml em 14:01 Drug: Meclizine 25 mg Route: PO; em 16:34 Follow up: Response: No adverse reaction; Marked relief of symptoms em 14:02 Drug: morphine 2 mg Route: IVP; Site: right antecubital; em 14:46 Follow up: Response: No adverse reaction; Marked relief of symptoms; Pain is decreased; em RASS: Alert and Calm (0) 14:16 Drug: Aspirin Chewable Tablet 324 mg Route: PO; em 17:48 Follow up: Response: No adverse reaction em Disposition: 19:00 Chart complete. 03/29 08:16 Co-signature as Attending Physician, Carlos Caba MD I agree with the assessment and amisha plan of care. Disposition: 03/28/20 18:35 Discharged to Home. Impression: Dizziness and giddiness, Chest pain, unspecified, Paresthesia of skin, Adverse effect of amphetamines. - Condition is Stable. - Discharge Instructions: Nonspecific Chest Pain, Dizziness, Paresthesia, Stimulant Use Disorder-Methamphetamines, Aspirin and Your Heart. - Medication Reconciliation Form, Thank You Letter, Antibiotic Education, Prescription Opioid Use form. - Follow up: Private Physician; When: 1 - 2 days; Reason: Recheck today's complaints. - Problem is new. - Symptoms have improved. NIH Stroke Scale - NIH Stroke Score Date: 03/28/2020 Time: 13:57 Total Score = 0 1a. Level of Consciousness (LOC) - 0(Alert) 1b. Level of Consciousness (LOC) (Year \T\ Age) - 0(Both) 1c. LOC Commands (Open \T\ Closes Eyes/Office Administrative Assistant) - 0(Both) 2. Best Gaze (Lateral Gaze Paresis) - 0(Normal) 3. Visual Field Loss - 0(No visual loss) 4. Facial Palsy - 0(Normal) 5a. Left Arm: Motor (10-second hold) - 0(No drift) 5b. Right Arm: Motor (10-second hold) - 0(No drift) 6a. Left Leg: Motor (5-second hold - always test supine) - 0(No drift) 6b. Right Leg: Motor (5-second hold - always test supine) - 0(No drift) 7. Limb Ataxia (finger/nose \T\ heel/parrish - test with eyes open) - 0(Absent) 8. Sensory Loss (pinprick arms/legs/face) - 0(Normal) 9. Best Language: Aphasia (description/naming/reading) - 0(No aphasia) 10. Dysarthria (speech clarity - read or repeat words) - 0(Normal) 11. Extinction and Inattention (visual/tactile/auditory/spatial/personal) - 0(No abnormality) Initials: cp Signatures: Dispatcher [employer] EDCarlos Mir MD MD cha Munoz, Edgar RN Carlos Saldana PA PA cp Davies, Jonathon, RN RN jd3 Corrections: (The following items were deleted from the chart) 03/28 13:51 13:46 morphine 2 mg IVP once; (PAIN>8) RASS on ADMN: Combtv4, Very Agttd3, cp Agttd2, Rstlss1, AlertClm0, Drwsy-1, LtSdtn-2, ModSdtn-3, DpSdtn-4, UnArsble-5 x2 ordered. cp 18:36 18:35 03/28/2020 18:35 Discharged to Home. Impression: Dizziness and giddiness; cp Chest pain, unspecified; Paresthesia of skin. Condition is Stable. Forms are Medication Reconciliation Form, Thank You Letter, Antibiotic Education, Prescription Opioid Use. Follow up: Private Physician; When: 1 - 2 days; Reason: Recheck today's complaints. Problem is new. Symptoms have improved. cp 18:53 18:36 03/28/2020 18:35 Discharged to Home. Impression: Dizziness and giddiness; em Chest pain, unspecified; Paresthesia of skin; Adverse effect of amphetamines. Condition is Stable. Discharge Instructions: Nonspecific Chest Pain, Dizziness, Paresthesia, Aspirin and Your Heart. Forms are Medication Reconciliation Form, Thank You Letter, Antibiotic Education, Prescription Opioid Use. Follow up: Private Physician; When: 1 - 2 days; Reason: Recheck today's complaints. Problem is new. Symptoms have improved. cp
--- NOTE | 2020-03-28 18:36 | ER ---
Nurse's Notes [facility] Name: Calin Valles Age: 49 yrs Sex: Male : 1970 Arrival Date: 03/28/2020 Time: 13:28 Bed 5 Private MD: Diagnosis: Dizziness and giddiness;Chest pain, unspecified;Paresthesia of skin;Adverse effect of amphetamines Presentation: 03/28 13:30 Chief complaint: Patient states: "I am having problems thinking and I am talking jd3 strange and I am feeling tingly all over on my left arm and face.". Onset of symptoms was March 28, 2020 at 13:00. 13:44 Coronavirus screen: At this time, the client does not indicate any symptoms associated jd3 with coronavirus-19. Ebola Screen: Patient negative for fever greater than or equal to 101.5 degrees Fahrenheit, and additional compatible Ebola Virus Disease symptoms. Initial Sepsis Screen: Does the patient meet any 2 criteria? No. Patient's initial sepsis screen is negative. Does the patient have a suspected source of infection? No. Patient's initial sepsis screen is negative. Risk Assessment: Do you want to hurt yourself or someone else? Patient reports no desire to harm self or others. 13:44 Method Of Arrival: Ambulatory jd3 13:44 Acuity: MICHELLE 3 jd3 Historical: - Allergies: 13:46 PENICILLINS; jd3 - PMHx: 13:46 Hypertension; jd3 - PSHx: 13:46 hand surgery; jd3 - Immunization history:: Adult Immunizations unknown. - Social history:: Smoking status: Patient reports the use of cigarette tobacco products, smokes one-half pack cigarettes per day, Patient uses street drugs, Methamphetamine (Meth). Screenin:22 Abuse screen: Denies threats or abuse. Nutritional screening: No deficits noted. em Tuberculosis screening: No symptoms or risk factors identified. Fall Risk None identified. Assessment: 13:45 General: Appears in no apparent distress. uncomfortable, Behavior is calm, cooperative, em Denies fever. Pain: Complains of pain in chest Pain radiates to left hand and right hand Pain currently is 3 out of 10 on a pain scale. Pain began this morning. Neuro: Level of Consciousness is awake, alert, obeys commands, Oriented to person, place, time, situation, Appropriate for age Moves all extremities. Gait is unsteady, Speech is normal, paresthesias in right arm and left arm Reports blurred vision dizziness. Cardiovascular: Capillary refill < 3 seconds Patient's skin is warm and dry. Respiratory: Airway is patent Respiratory effort is even, unlabored, Respiratory pattern is regular, symmetrical. GI: Reports nausea, Patient currently denies vomiting. Derm: Skin is intact, is healthy with good turgor, Skin is pink, warm \\T\\ dry. Musculoskeletal: Capillary refill < 3 seconds, Range of motion: intact in all extremities. 15:30 Reassessment: Patient appears in no apparent distress at this time. Patient and/or em family updated on plan of care and expected duration. Pain level reassessed. Patient is alert, oriented x 3, equal unlabored respirations, skin warm/dry/pink. 16:30 Reassessment: Patient appears in no apparent distress at this time. Patient and/or em family updated on plan of care and expected duration. Pain level reassessed. Patient is alert, oriented x 3, equal unlabored respirations, skin warm/dry/pink. 17:47 Reassessment: Patient appears in no apparent distress at this time. Patient and/or em family updated on plan of care and expected duration. Pain level reassessed. Patient is alert, oriented x 3, equal unlabored respirations, skin warm/dry/pink. repeat trop. sent to lab Patient states feeling better. Patient states symptoms have improved. Vital Signs: 13:46 BP 168 / 119; Pulse 98; Resp 18 S; Temp 97.2(TE); Pulse Ox 100% on R/A; Weight 74.84 kg jd3 (R); Height 5 ft. 10 in. (177.80 cm) (R); Pain 3/10; 14:21 BP 161 / 103; Pulse 75; Resp 20; Pulse Ox 99% on R/A; em 15:30 BP 150 / 96; Pulse 98; Resp 18; Pulse Ox 96% on R/A; em 16:30 BP 150 / 97; Pulse 103; Resp 18; Pulse Ox 100% on R/A; Pain 0/10; em 17:47 BP 150 / 105; Pulse 87; Resp 18; Pulse Ox 99% on R/A; em 13:46 Body Mass Index 23.67 (74.84 kg, 177.80 cm) jd3 NIH Stroke Scale Scores: 13:57 NIHSS Score: 0 cp ED Course: 13:28 Patient arrived in ED. ag5 13:30 Arm band placed on Patient pt taken to CT with code stroke. jd3 13:39 Carlos Dubois PA is PHCP. cp 13:39 Carlos Caba MD is Attending Physician. cp 13:44 Ct Stroke Brain Wo Cont In Process Unspecified. EDMS 13:45 Triage completed. jd3 13:47 Ash Carrera, RN is Primary Nurse. em 13:51 Patient has correct armband on for positive identification. Bed in low position. Call [facility] light in reach. Side rails up X2. compliance monitor on. Pulse ox on. NIBP on. 13:51 EKG done, by ED staff, reviewed by Carlos Caba MD. 5 13:59 XRAY Chest (1 view) In Process Unspecified. EDMS 14:00 Initial lab(s) drawn, by wv, sent to lab. Inserted saline lock: 20 gauge in right em antecubital area, using aseptic technique. Blood collected. 18:48 No provider procedures requiring assistance completed. IV discontinued, intact, em bleeding controlled, No redness/swelling at site. Pressure dressing applied. Administered Medications: 04:00 Drug: Zofran (Ondansetron) 4 mg Route: IVP; Site: right antecubital; em 16:34 Follow up: Response: No adverse reaction em 13:51 CANCELLED (Physician Discretion): morphine 2 mg IVP once; (PAIN>8) RASS on ADMN: cp Combtv4, Very Agttd3, Agttd2, Rstlss1, AlertClm0, Drwsy-1, LtSdtn-2, ModSdtn-3, DpSdtn-4, UnArsble-5 x2 14:00 Drug: NS 0.9% 1000 ml Route: IV; Rate: 1 bolus; Site: right antecubital; em 15:00 Follow up: IV Status: Completed infusion; IV Intake: 1000ml em 14:01 Drug: Meclizine 25 mg Route: PO; em 16:34 Follow up: Response: No adverse reaction; Marked relief of symptoms em 14:02 Drug: morphine 2 mg Route: IVP; Site: right antecubital; em 14:46 Follow up: Response: No adverse reaction; Marked relief of symptoms; Pain is decreased; em RASS: Alert and Calm (0) 14:16 Drug: Aspirin Chewable Tablet 324 mg Route: PO; em 17:48 Follow up: Response: No adverse reaction em Intake: 15:00 IV: 1000ml; Total: 1000ml. em Outcome: 18:35 Discharge ordered by . cp 18:52 Discharged to home ambulatory. em 18:52 Condition: good 18:52 Discharge instructions given to patient, Instructed on discharge instructions, follow up and referral plans. Demonstrated understanding of instructions, follow-up care. 18:53 Patient left the ED. em NIH Stroke Scale - NIH Stroke Score Date: 03/28/2020 Time: 13:57 Total Score = 0 1a. Level of Consciousness (LOC) - 0(Alert) 1b. Level of Consciousness (LOC) (Year \\T\\ Age) - 0(Both) 1c. LOC Commands (Open \\T\\ Closes Eyes/International Representative) - 0(Both) 2. Best Gaze (Lateral Gaze Paresis) - 0(Normal) 3. Visual Field Loss - 0(No visual loss) 4. Facial Palsy - 0(Normal) 5a. Left Arm: Motor (10-second hold) - 0(No drift) 5b. Right Arm: Motor (10-second hold) - 0(No drift) 6a. Left Leg: Motor (5-second hold - always test supine) - 0(No drift) 6b. Right Leg: Motor (5-second hold - always test supine) - 0(No drift) 7. Limb Ataxia (finger/nose \\T\\ heel/parrish - test with eyes open) - 0(Absent) 8. Sensory Loss (pinprick arms/legs/face) - 0(Normal) 9. Best Language: Aphasia (description/naming/reading) - 0(No aphasia) 10. Dysarthria (speech clarity - read or repeat words) - 0(Normal) 11. Extinction and Inattention (visual/tactile/auditory/spatial/personal) - 0(No abnormality) Initials: cp Signatures: Dispatcher [employer] Ash Rubin RN RN em Page, Corey, PA PA cp Martinez, Maria 5 Joseph Tran RN RN jd3 Gaskin, Ajare 5
[2020-03-28 20:07] LABS: Urine Blood NEGATIVE (NEG); Urine Glucose NEGATIVE (NEG); Urine Protein 1+ (NEG); Urine Specific Gravity 1.025 (1.005-1.030)
[2020-03-28 21:48] VITALS: TEMP 97.2
[2020-03-28 21:56] VITALS: BP 150/105; O2SAT 99
--- NOTE | 2020-03-30 07:45 | EKG ---
Test Date: 2020-03-28 Test Time: 13:45:16 Utility Person: SOTO MEASUREMENT RESULTS: Intervals: Rate: 82 MT: 104 QRSD: 96 QT: 366 QTc: 427 [place]: P: 57 MT: 104 QRS: 80 T: 73 INTERPRETIVE STATEMENTS: Sinus rhythm with short MT Otherwise normal ECG Compared to ECG 03/03/2019 19:17:31 Short MT interval now present Sinus tachycardia no longer present Electronically Signed On 03-30-20 07:41:09 ARTIFICIAL GLASS EYE MAKER by Mikel Carvajal
== END 2020-03-28 18:53 | disposition home or self-care (01) ==
LOC: ER 13:28
DX: R07.9 Chest pain, unspecified (principal); R42 Dizziness and giddiness; T43.625A Adverse effect of amphetamines, initial encounter; F17.210 Nicotine dependence, cigarettes, uncomplicated; R29.700 NIHSS score 0; Z88.0 Allergy status to penicillin
CPT/HCPCS: 36415; 70450; 71045; 80048; 80076; 80307; 81003; 82947; 83735; 83880; 84484; 85025; 85610; 93005; 96361; 96374; 96375; 99284; J2270; J2405; J7030

== ENCOUNTER 2020-11-24 21:39 | Emergency (ER) | payer SELFPAY ==
--- NOTE | 2020-11-24 23:55 | ER ---
Nurse's Notes [facility] Name: Calin Valles Age: 50 yrs Sex: Male : 1970 Arrival Date: 11/24/2020 Time: 21:40 Bed External Waiting Private MD: Diagnosis: Presentation: 11/24 21:51 Chief complaint: Patient states: Last night around 0230, I felt tingling and numbness ca1 on my R arm, hand and finger, my speech was different and I felt disoriented. I also had chest pain which persisted until now. HX of TIA. VAN negative. No slurring of speech, no facial droop. Coronavirus screen: Client denies travel out of the [place] in the last 14 days. At this time, the client does not indicate any symptoms associated with coronavirus-19. Ebola Screen: Patient negative for fever greater than or equal to 101.5 degrees Fahrenheit, and additional compatible Ebola Virus Disease symptoms Patient denies exposure to infectious person. Initial Sepsis Screen: Does the patient meet any 2 criteria? No. Patient's initial sepsis screen is negative. Does the patient have a suspected source of infection? No. Patient's initial sepsis screen is negative. Risk Assessment: Do you want to hurt yourself or someone else? Patient reports no desire to harm self or others. Onset of symptoms was November 24, 2020 at 02:30. 21:51 Method Of Arrival: Ambulatory ca1 21:51 Acuity: MICHELLE 3 ca1 Historical: - Allergies: 21:53 PENICILLINS; ca1 - PMHx: 21:53 Hypertension; TIA; ca1 - Immunization history:: Client reports having NOT received the Covid vaccine. Flu vaccine is not up to date. - Social history:: Smoking status: Patient reports the use of cigarette tobacco products, smokes one-half pack cigarettes per day. Vital Signs: 21:51 BP 151 / 105; Pulse 108; Resp 18 S; Temp 97.5(TE); Pulse Ox 100% on R/A; Weight 74.84 ca1 kg (R); Height 5 ft. 9 in. (175.26 cm) (R); Pain 4/10; 21:51 Body Mass Index 24.37 (74.84 kg, 175.26 cm) ca1 ED Course: 21:40 Patient arrived in ED. es 21:53 Triage completed. ca1 21:53 Arm band placed on right wrist. EKG completed in triage. Results shown to MD. prince Administered Medications: No medications were administered Outcome: 23:54 Patient left the ED. em Signatures: Tamara Barajas Edgar, RN RN em Ruthie Weeks RN RN ca1
[2020-11-25 00:33] VITALS: BP 151/105; TEMP 97.5; O2SAT 100
--- NOTE | 2020-11-25 19:16 | EKG ---
Test Date: 2020-11-24 Test Time: 21:50:28 Crime Scene Specialist: PRICE MEASUREMENT RESULTS: Intervals: Rate: 99 OR: 126 QRSD: 98 QT: 362 QTc: 464 [place]: P: 81 OR: 126 QRS: 83 T: 67 INTERPRETIVE STATEMENTS: Normal sinus rhythm Moderate voltage criteria for LVH, may be normal variant Borderline ECG Compared to ECG 03/28/2020 13:45:16 Left ventricular hypertrophy now present Short OR interval no longer present Electronically Signed On 11-25-20 19:13:43 CDT by Mikel Carvajal
== END 2020-11-24 23:54 | disposition left against medical advice (07) ==
LOC: ER 21:39
DX: Z53.21 Procedure and treatment not carried out due to patient leaving prior to being seen by health care provider (principal)
CPT/HCPCS: 93005; 99281

== ENCOUNTER 2021-08-15 18:01 | Emergency (ER) | payer SELFPAY ==
--- OUTSIDE RECORDS SUMMARY | 2021-08-15 18:04 | XMS REPORT | Continuity of Care Document ---
:1970 Author Organization [facility] Address [address] [place] [address] Dr[address] Reblolar [address] [place] [id number] Care Team Providers Name Role Phone MIGUEL Attending Clinician Unavailable MIGUEL Admitting Clinician Unavailable Payers Payer Name Policy Type Policy Number Effective Date Expiration Date S ource Problems This patient has no known problems. Allergies, Adverse Reactions, Alerts This patient has no known allergies or adverse reactions. Medications This patient has no known medications. Procedures This patient has no known procedures. Encounters Start End Encounter Admission Attending Care Care Encounter Source Date/Time Date/Time Type Type Clinicians Facility Department ID 2019-05-17 2019-05-17 Outpatient JUDI DOHERTY [facility] [id number] 10:35:00 10:35:00 _ANN 0[address] [facility], operated by [facility] Results This patient has no known results.
[2021-08-15] MEDS ORDERED: NA CHLORIDE 0.9% 1,000 ML ONE (18:18)
[2021-08-15] MEDS ORDERED: FAMOTIDINE 20 MG/2 ML VIAL IV ONE (18:19)
[2021-08-15 18:31] LABS: Absolute Lymphocytes (CBC) 1.8 K/uL (0.7-4.9); Hematocrit 43.4 % (39.6-49.0); Lymphocytes % 34.2 % (15.3-44.8); MPV 7.4 fL (7.6-11.3); RBC Red Blood Cell Count 4.84 M/uL (4.33-5.43)
[2021-08-15 18:33] LABS: Protime INR 1.01
[2021-08-15 18:46] LABS: ALT/SGPT 26 U/L (12-78); AST/SGOT 13 U/L (15-37); Albumin 3.9 g/dL (3.4-5.0); Alkaline Phosphatase 54 U/L (45-117); BUN Blood Urea Nitrogen 10 mg/dL (7-18); Bicarbonate 28 mmol/L (21-32); Bilirubin Total 0.4 mg/dL (0.2-1.0); Glucose Level 118 mg/dL (74-106); Magnesium 2.4 mg/dL (1.8-2.4); NT PRO-BNP 110 pg/mL (<125); Protein, Total 7.8 g/dL (6.4-8.2); Sodium Level 139 mmol/L (136-145); Troponin High Sensitivity 5.5 pg/mL (<58.9)
[2021-08-15 18:47] LABS: Bilirubin Direct < 0.1 mg/dL (0-0.2)
--- NOTE | 2021-08-15 19:08 | RAD REPORT ---
EXAM DESCRIPTION: RAD - Chest Single View - 08/15/2021 6:56 pm CLINICAL HISTORY: CHEST PAIN COMPARISON: Portable 03/28/2020 TECHNIQUE: AP portable chest image was obtained 08/15/2021 6:56 pm . FINDINGS: Lungs are clear. Interstitial pattern matches comparison. Heart and vasculature are normal . No measurable pleural effusion and no pneumothorax. No acute bony abnormality seen. No acute aortic findings suspected. IMPRESSION: No acute cardiopulmonary process. No significant change from comparison study.
[2021-08-15 20:26] LABS: Urine Blood Negative (Negative); Urine Glucose Negative (Negative); Urine Protein Negative (Negative); Urine Specific Gravity 1.025 (1.005-1.030)
[2021-08-15] MEDS ORDERED: LORAZEPAM 1 MG TABLET ONE (20:28)
[2021-08-15 20:56] LABS: Barbiturates NEGATIVE (NEGATIVE); Benzodiazepines NEGATIVE (NEGATIVE); Cocaine NEGATIVE (NEGATIVE); METHAMPHETAM POSITIVE (NEGATIVE); Methadone NEGATIVE (NEGATIVE); Opiates NEGATIVE (NEGATIVE); Phencyclidine NEGATIVE (NEGATIVE); THC Cannibis POSITIVE (NEGATIVE)
[2021-08-15] MEDS ORDERED: MORPHINE 4 MG/ML SYR ONE (21:45)
--- NOTE | 2021-08-15 22:28 | EDPHYS ---
Physician Documentation [facility] Name: Calin Valles Age: 50 yrs Sex: Male : 1970 Arrival Date: 08/15/2021 Time: 18:02 Bed 7 Private MD: ED Physician Kike Mishra HPI: 08/15 18:13 This 50 yrs old Male presents to ER via Ambulatory with complaints of Chest Pain, High pm1 Blood Pressure, Dizziness. 18:13 The patient or guardian reports chest pain that is located primarily in the mid-sternal pm1 area. Onset: 1 hour(s) ago. The pain does not radiate. Associated signs and symptoms: Pertinent positives: burping prior to onset of chest pain. Hyperventilation episode when he checked his blood pressure and it was elevated. Hyperventilation resulted in dizziness, blurred vision, numbness and tingling to his hands and feet. The chest pain is described as like someone punching him. Duration: The patient or guardian reports a single episode, that is now resolved. Modifying factors: The symptoms are alleviated by nothing. the symptoms are aggravated by nothing. The patient has not recently seen a physician. Patient uses methamphetamine and marijuana daily for many years. Historical: - Allergies: 18:11 PENICILLINS; ss - PMHx: 18:11 Hypertension; TIA; ss - Immunization history:: Client reports having NOT received the Covid vaccine. - Social history:: Smoking status: Patient reports the use of cigarette tobacco products, smokes one-half pack cigarettes per day, Patient uses street drugs, marijuana, Methamphetamine (Meth). ROS: 18:29 Constitutional: Negative for fever, chills, and weight loss. pm1 18:29 Respiratory: Negative for shortness of breath, cough, wheezing, and pleuritic chest pain, Abdomen/GI: Negative for abdominal pain, nausea, vomiting, diarrhea, and constipation, Back: Negative for injury and pain, MS/Extremity: Negative for injury and deformity, Skin: Negative for injury, rash, and discoloration, Neuro: Negative for headache, weakness, numbness, tingling, and seizure. 18:29 Cardiovascular: Positive for chest pain, Negative for edema, palpitations. 18:29 All other systems are negative. Exam: 18:29 Constitutional: This is a well developed, well nourished patient who is awake, alert, pm1 and in no acute distress. Head/Face: Normocephalic, atraumatic. 18:29 Respiratory: Lungs have equal breath sounds bilaterally, clear to auscultation and percussion. No rales, rhonchi or wheezes noted. No increased work of breathing, no retractions or nasal flaring. Abdomen/GI: Soft, non-tender, with normal bowel sounds. No distension or tympany. No guarding or rebound. No evidence of tenderness throughout. Back: No spinal tenderness. No costovertebral tenderness. Full range of motion. Skin: Warm, dry with normal turgor. Normal color with no rashes, no lesions, and no evidence of cellulitis. MS/ Extremity: Pulses equal, no cyanosis. Neurovascular intact. Full, normal range of motion. 18:29 Cardiovascular: Exam negative for acute changes, Rate: tachycardic, Rhythm: regular, Pulses: no pulse deficits are appreciated, Heart sounds: normal. 18:29 Neuro: Exam negative for acute changes, Orientation: is normal, Mentation: is normal, Motor: is normal. Vital Signs: 18:10 BP 157 / 108; Pulse 114; Resp 22; Temp 98.6(TE); Pulse Ox 100% on R/A; ss 18:21 BP 120 / 116; Pulse 107; Resp 20; Temp 98.7(O); Pulse Ox 100% ; Weight 70.31 kg; Height soliman 5 ft. 10 in. (177.80 cm); 19:23 BP 146 / 93; Pulse 101; Resp 18; Pulse Ox 100% on R/A; ke1 22:33 BP 153 / 98; Pulse 83; Resp 20; Pulse Ox 99% on R/A; ke1 18:21 Body Mass Index 22.24 (70.31 kg, 177.80 cm) soliman MDM: 18:04 Patient medically screened. pm1 18:30 The patient was not given aspirin in the Emergency Department. Patient reports taking pm1 aspirin within the past 24 hours. Data reviewed: vital signs. 18:30 Data interpreted: Pulse oximetry: on room air is 100 %. Interpretation: normal. pm1 22:27 Counseling: I had a detailed discussion with the patient and/or guardian regarding: the pm1 historical points, exam findings, and any diagnostic results supporting the discharge/admit diagnosis, lab results, radiology results, the need for outpatient follow up, to return to the emergency department if symptoms worsen or persist or if there are any questions or concerns that arise at home. 08/15 18:13 Order name: Basic Metabolic Panel; Complete Time: 19:03 pm1 08/15 18:13 Order name: CBC with Diff; Complete Time: 18:40 pm1 08/15 18:13 Order name: LFT's; Complete Time: 19:03 pm1 08/15 18:13 Order name: Magnesium; Complete Time: 19:03 pm1 08/15 18:13 Order name: NT PRO-BNP; Complete Time: 19:03 pm1 08/15 18:13 Order name: PT-INR; Complete Time: 18:40 pm1 08/15 18:13 Order name: Troponin HS; Complete Time: 19:03 pm1 08/15 18:13 Order name: XRAY Chest (1 view); Complete Time: 19:14 pm1 08/15 18:13 Order name: UDS; Complete Time: 20:56 pm1 08/15 20:26 Order name: Urine Dipstick-Ancillary; Complete Time: 20:39 EDMS 08/15 20:56 Order name: Troponin High Sensitivity; Complete Time: 22:25 pm1 08/15 18:13 Order name: EKG; Complete Time: 18:14 pm1 08/15 18:13 Order name: Cardiac monitoring; Complete Time: 18:18 pm1 08/15 18:13 Order name: EKG - Nurse/Tech; Complete Time: 18:18 pm1 08/15 18:13 Order name: IV Saline Lock; Complete Time: 18:18 pm1 08/15 18:13 Order name: Labs collected and sent; Complete Time: 18:18 pm1 08/15 18:13 Order name: O2 Per Protocol; Complete Time: 18:20 pm1 08/15 18:13 Order name: O2 Sat Monitoring; Complete Time: 18:18 pm1 08/15 18:13 Order name: Urine Dipstick-Ancillary (obtain specimen); Complete Time: 20:25 pm1 Administered Medications: 18:19 Drug: NS 0.9% 1000 ml Route: IV; Rate: 1000 ml; Site: left antecubital; soliman 22:44 Follow up: IV Status: Completed infusion; IV Intake: 1000ml tw5 18:19 Drug: Pepcid (famotidine) 20 mg Route: IVP; Site: left antecubital; soliman 18:20 Follow up: Response: No adverse reaction soliman 20:25 Drug: Ativan (LORazepam) 1 mg Route: PO; ke1 21:30 Follow up: Response: No adverse reaction lg3 22:40 Drug: GI Cocktail without - (Maalox Suspension 30 ml, Lidocaine Liquid 2 % 15 tw5 ml) Route: PO; 22:40 Follow up: Response: No adverse reaction tw5 Disposition: 08/16 10:51 Co-signature as Attending Physician, Kike Mishra MD. rn Disposition Summary: 08/15/21 22:27 Discharge Ordered Location: Home pm1 Problem: new pm1 Symptoms: have improved pm1 Condition: Stable pm1 Diagnosis - Chest pain, unspecified pm1 - Hyperventilation pm1 - Cannabis abuse pm1 - Other stimulant abuse - methamphetamine abuse pm1 Followup: pm1 - With: Emergency Department - When: As needed - Reason: Worsening of condition Followup: pm1 - With: Private Physician - When: 2 - 3 days - Reason: Recheck today's complaints, Continuance of care, Re-evaluation by your physician Discharge Instructions: - Discharge Summary Sheet pm1 - Nonspecific Chest Pain, Adult pm1 - Hyperventilation pm1 - Cannabis Use Disorder pm1 - Methamphetamines Use Disorder pm1 Forms: - Medication Reconciliation Form pm1 - Thank You Letter pm1 - Antibiotic Education pm1 - Prescription Opioid Use pm1 Prescriptions: - Pepcid 20 mg Oral Tablet - take 1 tablet by ORAL route every 12 hours for 10 days; 20 tablet; Refills: 0, pm1 Product Selection Permitted Signatures: Dispatcher [employer] Kike Butts MD MD rn Smirch, Shelby, RN RN ss Marinas, Patrick, [employer]PR[employer] MACHINE LOADER pm1 Jammie Erwin tw5 Yoselin Paula RN RN ha Ebrottie, Kouassi, RN RN ke1 Herminia Rivas RN lg3 Corrections: (The following items were deleted from the chart) 08/15 18:31 18:30 Data reviewed: vital signs, pm1 pm1
--- NOTE | 2021-08-15 22:28 | ER ---
Nurse's Notes [facility] Name: Calin Valles Age: 50 yrs Sex: Male : 1970 Arrival Date: 08/15/2021 Time: 18:02 Bed 7 Private MD: Diagnosis: Chest pain, unspecified;Hyperventilation;Cannabis abuse;Other stimulant abuse-methamphetamine abuse Presentation: 08/15 18:10 Chief complaint: Patient states: Intermittent chest tightness and dizziness that began ss 1 hour ago. Pt states that he took ASA 325 mg x 2 just prior to arrival. Coronavirus screen: Client denies travel out of the [place] in the last 14 days. Ebola Screen: Patient denies exposure to infectious person. Patient denies travel to an Ebola-affected area in the 21 days before illness onset. Initial Sepsis Screen: Does the patient meet any 2 criteria? No. Patient's initial sepsis screen is negative. Does the patient have a suspected source of infection? No. Patient's initial sepsis screen is negative. Risk Assessment: Do you want to hurt yourself or someone else? Patient reports no desire to harm self or others. Onset of symptoms was August 15, 2021. 18:10 Method Of Arrival: Ambulatory ss 18:10 Acuity: MICHELLE 3 ss 18:12 Note Pt admits to using Meth daily x years. ss Triage Assessment: 18:23 General: Appears in no apparent distress. Behavior is calm, cooperative. Pain: soliman Complains of pain in chest. Historical: - Allergies: 18:11 PENICILLINS; ss - PMHx: 18:11 Hypertension; TIA; ss - Immunization history:: Client reports having NOT received the Covid vaccine. - Social history:: Smoking status: Patient reports the use of cigarette tobacco products, smokes one-half pack cigarettes per day, Patient uses street drugs, marijuana, Methamphetamine (Meth). Screenin:22 Abuse screen: Denies threats or abuse. Denies injuries from another. Nutritional soliman screening: No deficits noted. Tuberculosis screening: No symptoms or risk factors identified. Fall Risk None identified. Assessment: 18:22 Pain: Complains of pain in chest Pain does not radiate. Pain began suddenly. Neuro: soliman Reports blurred vision dizziness, headache weakness. Cardiovascular: Reports chest pain, lightheadedness. 19:20 Reassessment: Patient is alert, oriented x 3, equal unlabored respirations, skin ke1 warm/dry/pink. General: Behavior is anxious. Pain: Denies pain. Neuro: Level of Consciousness is awake, alert, obeys commands, Oriented to person, place, time, situation, Reports. Cardiovascular:. Respiratory: No deficits noted. 22:41 Reassessment: Patient appears in no apparent distress at this time. No changes from tw5 previously documented assessment. Patient and/or family updated on plan of care and expected duration. Pain level reassessed. Patient is alert, oriented x 3, equal unlabored respirations, skin warm/dry/pink. Patient states feeling better. Patient states symptoms have improved. Vital Signs: 18:10 BP 157 / 108; Pulse 114; Resp 22; Temp 98.6(TE); Pulse Ox 100% on R/A; ss 18:21 BP 120 / 116; Pulse 107; Resp 20; Temp 98.7(O); Pulse Ox 100% ; Weight 70.31 kg; Height soliman 5 ft. 10 in. (177.80 cm); 19:23 BP 146 / 93; Pulse 101; Resp 18; Pulse Ox 100% on R/A; ke1 22:33 BP 153 / 98; Pulse 83; Resp 20; Pulse Ox 99% on R/A; ke1 18:21 Body Mass Index 22.24 (70.31 kg, 177.80 cm) ED Course: 18:02 Patient arrived in ED. am2 18:04 Oscar Hunter NP is PHCP. pm1 18:04 Kike Mishra MD is Attending Physician. pm1 18:04 Yoselin Paula RN is Primary Nurse. soliman 18:11 Triage completed. ss 18:11 Arm band placed on right wrist. ss 18:15 Inserted saline lock: 18 gauge in left antecubital area, using aseptic technique. Blood jg9 collected. 18:20 Basic Metabolic Panel Sent. soliman 18:20 Troponin HS Sent. soliman 18:20 PT-INR Sent. soliman 18:20 NT PRO-BNP Sent. soliman 18:20 Magnesium Sent. soliman 18:20 LFT's Sent. 18:20 CBC with Diff Sent. soliman 18:22 Patient has correct armband on for positive identification. Bed in low position. 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 Pulse ox on. NIBP on. 18:22 No provider procedures requiring assistance completed. Patient maintains SpO2 soliman saturation greater than 95% on room air. 18:58 XRAY Chest (1 view) In Process Unspecified. EDMS 19:20 Primary Nurse role handed off by Yoselin Paula RN cs9 19:23 John Owens, VIOLA is Primary Nurse. ke1 22:43 IV discontinued, intact, bleeding controlled, No redness/swelling at site. Pressure tw5 dressing applied. Administered Medications: 18:19 Drug: NS 0.9% 1000 ml Route: IV; Rate: 1000 ml; Site: left antecubital; soliman 22:44 Follow up: IV Status: Completed infusion; IV Intake: 1000ml tw5 18:19 Drug: Pepcid (famotidine) 20 mg Route: IVP; Site: left antecubital; soliman 18:20 Follow up: Response: No adverse reaction soliman 20:25 Drug: Ativan (LORazepam) 1 mg Route: PO; ke1 21:30 Follow up: Response: No adverse reaction lg3 22:40 Drug: GI Cocktail without - (Maalox Suspension 30 ml, Lidocaine Liquid 2 % 15 tw5 ml) Route: PO; 22:40 Follow up: Response: No adverse reaction tw5 Intake: 22:44 IV: 1000ml; Total: 1000ml. tw5 Outcome: 22:27 Discharge ordered by . pm1 22:43 Discharged to home ambulatory. tw5 22:43 Condition: stable 22:43 Discharge instructions given to patient, Instructed on discharge instructions, medication usage, Demonstrated understanding of instructions, medications. 22:44 Patient left the ED. tw5 Signatures: Dispatcher [employer] EDOR June Mckinley RN Oscar Cruz, FARIBA LADDERMAN pm1 Birdie Tavera am2 Herminia Rivas RN RN lg3 Jammie Erwin tw5 Carla Bradshaw cs9 Kim Franco RN RN jg9 Yoselin Paula RN RN soliman John Owens RN RN ke1 Corrections: (The following items were deleted from the chart) 19:26 19:20 Reassessment: Patient is alert, oriented x 3, equal unlabored respirations, skin ke1 warm/dry/pink. ke1
[2021-08-15] MEDS ORDERED: MAGNES/ALUMIN/SIMET 30ML UCUP ONE (22:32)
[2021-08-15] MEDS ORDERED: LIDOCAINE VISCOUS 2% SOLN 15 ML UDC ONE (22:33)
[2021-08-15 22:53] VITALS: TEMP 98.7
[2021-08-15 22:55] VITALS: BP 153/98; O2SAT 99
--- NOTE | 2021-08-17 11:17 | EKG ---
Test Date: 2021-08-15 Test Time: 18:14:08 Crude Tester: CHANTAL MEASUREMENT RESULTS: Intervals: Rate: 104 TN: 122 QRSD: 98 QT: 342 QTc: 449 [place]: P: 82 TN: 122 QRS: 77 T: 64 INTERPRETIVE STATEMENTS: Sinus tachycardia Otherwise normal ECG Compared to ECG 11/24/2020 21:50:28 Sinus rhythm no longer present Left ventricular hypertrophy no longer present Electronically Signed On 08-17-21 11:12:53 CDT by Mikel Carvajal
== END 2021-08-15 22:44 | disposition home or self-care (01) ==
LOC: ER 18:01
DX: R06.4 Hyperventilation (principal); F12.10 Cannabis abuse, uncomplicated; F15.10 Other stimulant abuse, uncomplicated; I10 Essential (primary) hypertension; F17.210 Nicotine dependence, cigarettes, uncomplicated; Z88.0 Allergy status to penicillin
CPT/HCPCS: 36415; 71045; 80048; 80076; 80307; 81003; 83735; 83880; 84484; 85025; 85610; 93005; 96361; 96374; 99285; J7030